=== PATIENT | female | born 1985 | race Caucasian/White ===

== ENCOUNTER 2024-05-26 13:24 | Inpatient (IN) | payer OTHER ==
[~2024-05-26] VITALS: Ht 154.9 cm; Wt 69.7 kg
[2024-05-26] MEDS ORDERED: LORAZEPAM 2 MG/1 ML VIAL ONE (14:23)
[2024-05-26 14:24] LABS: BASOPHILS % (AUTO) 0.3 % (0.0-2.0); EOSINOPHILS # (AUTO) 0.1 K/uL (0.0-0.7); EOSINOPHILS % (AUTO) 2.8 % (0.0-7.0); HEMATOCRIT 39.7 % (31.2-41.9); LYMPHOCYTES # (AUTO) 1.7 K/uL (0.8-4.8); LYMPHOCYTES % (AUTO) 33.5 % (20.5-51.5); MEAN CORPUSCULAR HEMOGLOBIN 29.7 uug (24.7-32.8); MEAN CORPUSCULAR HGB CONC 33 g/dL (32.3-35.6); MEAN CORPUSCULAR VOLUME 90.6 fL (75.5-95.3); MONOCYTES # (AUTO) 0.6 K/uL (0.1-1.30); MONOCYTES % (AUTO) 11.6 % (0.0-11.0); NEUTROPHILS # (AUTO) 2.6 K/uL (1.8-8.9); NEUTROPHILS % (AUTO) 51.8 % (38.5-71.5); PLATELET COUNT (AUTO) 231 K/uL (179-408); RED BLOOD CELL COUNT(AUTO) 4.38 MIL/uL (3.63-4.92); RED CELL DISTRIBUTION WIDTH 13.7 % (12.3-17.7); WHITE BLOOD COUNT (AUTO) 5.1 K/uL (3.8-11.8)
[2024-05-26] MEDS ORDERED: METH-807 PO (14:25)
[2024-05-26] MEDS: LORAZEPAM 2 MG/1 ML VIAL IV ONE (14:25)
[2024-05-26] MEDS ORDERED: SERT50TA PO (14:25)
[2024-05-26] MEDS ORDERED: QUET200T PO (14:25)
[2024-05-26] MEDS ORDERED: METO-295 PO (14:25)
[2024-05-26] MEDS ORDERED: HYDR50TA62 PO (14:25)
[2024-05-26] MEDS ORDERED: PHEN-895 PO (14:25)
[2024-05-26] MEDS ORDERED: MECL-159 PO (14:25)
[2024-05-26] MEDS ORDERED: BACL10TA PO (14:25)
[2024-05-26 14:29] LABS: DIFFERENTIAL COMMENT 1
[2024-05-26] MEDS: IV NORMAL SALINE 1000 ML BAG IV ONE ×2 (14:29→16:30)
[2024-05-26] MEDS ORDERED: ONDA-104 PO (14:29)
[2024-05-26] MEDS ORDERED: KETO10TA2 PO (14:29)
[2024-05-26] MEDS ORDERED: GABA300C PO (14:29)
[2024-05-26] MEDS ORDERED: OXYC20TA42 PO (14:29)
[2024-05-26 14:34] LABS: ETHANOL < 3 MG/DL (0-10)
[2024-05-26 14:38] LABS: AMMONIA < 10 umol/L (11-32)
[2024-05-26 14:39] LABS: MAGNESIUM 2.5 mg/dL (1.8-2.4); PHOSPHOROUS 3.5 mg/dL (2.5-4.9)
[2024-05-26 14:49] LABS: CALCIUM 9.3 mg/dL (8.5-10.1); CARBON DIOXIDE 29 mmol/L (21-32); CHLORIDE 100 mmol/L (98-107); CREATININE 0.9 mg/dL (0.6-1.3); GLUCOSE 104 mg/dL (74-106); POTASSIUM 3.4 mmol/L (3.5-5.1); SODIUM SERUM 130 mmol/L (136-145); UREA NITROGEN, BLOOD 9 mg/dL (7-18)
[2024-05-26 14:56] LABS: ALANINE AMINOTRANSFERASE 15 U/L (14-59); ALBUMIN 4.1 g/dL (3.4-5.0); ALKALINE PHOSPHATASE 40 U/L (50-136); ASPARTATE AMINOTRANSFERASE 14 U/L (15-37); BILIRUBIN,DIRECT 0.1 mg/dL (0.0-0.2); BILIRUBIN,TOTAL 0.6 mg/dL (0.2-1.0)
[2024-05-26 14:58] LABS: ACETAMINOPHEN < 10.0 ug/mL (10-30)
[2024-05-26 15:01] LABS: THYROID STIMULATING HORMONE 2.836 mIU/mL (0.358-3.740)
[2024-05-26] MEDS ORDERED: ACETAMINOPHEN 650 MG SUPP.RECT RC PRN (15:15)
[2024-05-26 16:04] LABS: *BILIRUBIN,URIN NEGATIVE (NEGATIVE); *BLOOD, URINE 2+ (NEGATIVE); *CLARITY,URINE CLEAR (CLEAR); *COLOR,URINE LIGHT YELLOW (YELLOW); *KETONES,URINE NEGATIVE (NEGATIVE); *PROTEIN,URINE NEGATIVE (NEGATIVE); *UROBILINOGEN,URINE 0.2 E.U./dl (NORMAL); LEUKOCYTE ESTERASE ,URINE TRACE (NEGATIVE); NITRITE, URINE NEGATIVE (NEGATIVE); PH,URINE 5.5 (5.0-8.0); UGLUCOSE NEGATIVE (NEGATIVE)
[2024-05-26 16:05] LABS: *URINE HCG, QUAL NEGATIVE (NEGATIVE); BACTERIA,URINE FEW /HPF (NONE SEEN); RBC,URINE 20-50 /HPF (0-3); SQUAMOUS EPITHELIAL CELL,UR FEW /HPF (NONE SEEN)
[2024-05-26] MEDS: LACOSAMIDE 200 MG in IV NORMAL SALINE 100 ML IV ONE (16:06)
[2024-05-26 16:18] LABS: *AMPHETAMINE, URINE NEGATIVE (NEGATIVE); *BARBITURATE, URINE NEGATIVE (NEGATIVE); *BENZODIAZEPINE, URINE NEGATIVE (NEGATIVE); *CANNABINOID, URINE POSITIVE (NEGATIVE); *COCCAINE, URINE NEGATIVE (NEGATIVE); *OPIATE, URINE POSITIVE (NEGATIVE); *PHENCYCLIDINE SCREEN,URINE NEGATIVE (NEGATIVE); FENTANYL, URINE NEGATIVE (NEGATIVE)
[2024-05-26] MEDS: IV D5 1/2 NS 1000 ML 1,000 ML IV PRN (18:29)
[2024-05-26] MEDS: CEFTRIAXONE 1 G in IV DEXTROSE 5% 50 ML IV ONE (18:33)
[2024-05-26 18:38] VITALS: BP 128/82; TEMP 98.4; O2SAT 100
[2024-05-26 19:12] VITALS: BP 135/54; TEMP 98.2; O2SAT 100
[2024-05-26] MEDS: LORAZEPAM 2 MG/1 ML VIAL IV PRN (19:22)
[2024-05-26] MEDS: KETOROLAC TROMETHAMINE 30 MG INJ IVP PRN (20:53)
[2024-05-26] MEDS: ENOXAPARIN SODIUM 40 MG/0.4 ML DISP.SYRIN SQ SCH (20:56)
[2024-05-26 23:10] VITALS: BP 125/84; TEMP 97.7; O2SAT 95
[2024-05-27] VITALS (7 sets, daily range): BP systolic 111–148; BP diastolic 68–91; TEMP 97.6–98.3; O2SAT 97–100
[2024-05-27] MEDS: ONDANSETRON 4 MG/2 ML VIAL IV PRN (01:33)
[2024-05-27 06:32] LABS: BASOPHILS % (AUTO) 0.2 % (0.0-2.0); EOSINOPHILS # (AUTO) 0.2 K/uL (0.0-0.7); EOSINOPHILS % (AUTO) 2.4 % (0.0-7.0); HEMATOCRIT 33.9 % (31.2-41.9); HEMOGLOBIN 11.7 g/dL (10.9-14.3); LYMPHOCYTES # (AUTO) 2.6 K/uL (0.8-4.8); LYMPHOCYTES % (AUTO) 34.9 % (20.5-51.5); MEAN CORPUSCULAR HEMOGLOBIN 30.9 uug (24.7-32.8); MEAN CORPUSCULAR HGB CONC 34 g/dL (32.3-35.6); MEAN CORPUSCULAR VOLUME 89.8 fL (75.5-95.3); MONOCYTES # (AUTO) 0.8 K/uL (0.1-1.30); MONOCYTES % (AUTO) 10.3 % (0.0-11.0); NEUTROPHILS # (AUTO) 3.9 K/uL (1.8-8.9); NEUTROPHILS % (AUTO) 52.2 % (38.5-71.5); PLATELET COUNT (AUTO) 211 K/uL (179-408); RED BLOOD CELL COUNT(AUTO) 3.78 MIL/uL (3.63-4.92); RED CELL DISTRIBUTION WIDTH 13.4 % (12.3-17.7); WHITE BLOOD COUNT (AUTO) 7.5 K/uL (3.8-11.8)
[2024-05-27 06:41] LABS: DIFFERENTIAL COMMENT 1
[2024-05-27 06:42] LABS: CALCIUM 7.8 mg/dL (8.5-10.1); CARBON DIOXIDE 29 mmol/L (21-32); CHLORIDE 105 mmol/L (98-107); CREATININE 0.5 mg/dL (0.6-1.3); GLUCOSE 84 mg/dL (74-106); MAGNESIUM 2.2 mg/dL (1.8-2.4); PHOSPHOROUS 3.3 mg/dL (2.5-4.9); POTASSIUM 3.9 mmol/L (3.5-5.1); SODIUM SERUM 139 mmol/L (136-145); UREA NITROGEN, BLOOD 7 mg/dL (7-18)
[2024-05-27] MEDS: PANTOPRAZOLE SODIUM 40 MG VIAL IV SCH (08:23)
[2024-05-27] MEDS ORDERED: AMIT10TA6 PO (10:28)
[2024-05-27] MEDS: LACOSAMIDE 100 MG in IV NORMAL SALINE 50 ML IV SCH (13:14)
[2024-05-27] MEDS ORDERED: AMITRIPTYLINE HCL 10 MG TABLET PO SCH (13:45)
[2024-05-27] MEDS ORDERED: BACLOFEN 10 MG TABLET PO PRN (13:45)
[2024-05-27] MEDS ORDERED: hydrOXYzine HCL 25 MG TABLET PO PRN (13:45)
[2024-05-27 14:08] LABS: THYROID STIMULATING HORMONE 1.021 mIU/mL (0.358-3.740)
[2024-05-27] MEDS: METHOCARBAMOL 750 MG TABLET PO SCH (20:48)
[2024-05-27] MEDS: QUETIAPINE FUMARATE 200 MG TABLET PO SCH (20:48)
[2024-05-27] MEDS: GABAPENTIN 300 MG CAPSULE PO SCH (20:48)
[2024-05-27] MEDS: AMITRIPTYLINE HCL 50 MG TABLET PO SCH (20:48)
[2024-05-27] MEDS ORDERED: LACOSAMIDE 100 MG/10 ML UDC ONE (20:56)
[2024-05-27] MEDS: OXYCODONE HCL 5 MG TABLET PO PRN (21:56)
[2024-05-27] MEDS: LACOSAMIDE 50 MG TABLET PO SCH (23:06)
[2024-05-28 06:41] VITALS: BP 113/92; TEMP 97.7; O2SAT 99
[2024-05-28 08:00] VITALS: BP 131/98; TEMP 97; O2SAT 99
[2024-05-28] MEDS ORDERED: LACO50TA2 PO (10:21)
[2024-05-28 12:00] VITALS: BP 143/97; TEMP 97.6; O2SAT 97
[2024-05-29] MEDS ORDERED: PANTOPRAZOLE SODIUM 40 MG TABLET.DR PO SCH (07:00)
== END 2024-05-28 13:00 | disposition home or self-care (01) | DRG 917 ==
LOC: ER 13:24 → TELE-TD3 18:00 → TELE3 05-27 10:08
DX: T40.2X1A Poisoning by other opioids, accidental (unintentional), initial encounter (principal); G92.8 Other toxic encephalopathy; E87.1 Hypo-osmolality and hyponatremia; F11.20 Opioid dependence, uncomplicated; N39.0 Urinary tract infection, site not specified; Y92.039 Unspecified place in apartment as the place of occurrence of the external cause; R56.9 Unspecified convulsions; N31.9 Neuromuscular dysfunction of bladder, unspecified; G89.4 Chronic pain syndrome; Z93.50 Unspecified cystostomy status; Z98.890 Other specified postprocedural states; E87.6 Hypokalemia; F43.10 Post-traumatic stress disorder, unspecified; Z79.899 Other long term (current) drug therapy; Z88.8 Allergy status to other drugs, medicaments and biological substances; F12.90 Cannabis use, unspecified, uncomplicated
CPT/HCPCS: 36415; 70450; 71045; 83605; 83735; 83921; 84100; 84443; 84484; 84703; 85025; 85730; 87040; 87077; 87086; C1758; G0378; G0480; J0696; J1650; J1885; J2060; J2405; J2470; J7040